=== PATIENT | female | born 1945 | race Caucasian/White ===

== ENCOUNTER 2023-06-04 11:59 | Inpatient (IN) | payer OTHER ==
[~2023-06-04] VITALS: Ht 162.6 cm; Wt 61.0 kg
[~2023-06-04 11:59] MED LIST: FOLI-119 PO; HYDR12.59 PO; HYDR200T36 PO; LEUC5TAB PO; LISI10TA34 PO; METH2.5T PO; METO-159 PO; TRAM50TA2 PO
[2023-06-04 12:50] LABS: Basophils # (auto) 0 10 ^3/uL (0-0.2); Basophils % (auto) 0.8 % (0.0-2.0); Eosinophils # (auto) 0.1 10 ^3/uL (0-0.8); Eosinophils % (auto) 1.1 % (0.0-7.0); Hematocrit 38.3 % (36.0-46.0); Hemoglobin 12.8 g/dL (12.2-16.2); Lymphocytes # (auto) 0.8 10 ^3/uL (0.4-5.4); Lymphocytes % (auto) 16.3 % (10.0-50.0); Mean Corpuscular Hemoglobin 30.6 pg (28.0-32.0); Mean Corpuscular Hgb Conc. 33.3 g/dL (32.0-36.0); Mean Corpuscular Volume 91.6 fL (80.0-100.0); Monocytes # (auto) 0.3 10 ^3/uL (0-1.3); Neutrophils # (auto) 3.6 10 ^3/uL (1.6-8.6); Neutrophils % (auto) 74.8 % (37.0-80.0); Nucleated Red Blood Cells % 0.1 %; Red Blood Cells 4.18 10^6/uL (4.0-5.20); Red Cell Distribution Width 14.1 % (11.8-14.3); White Blood Cell 4.8 10^3/uL (4.4-10.8)
[2023-06-04 13:24] LABS: Alanine Aminotransferase 23 U/L (7-40); Albumin 4.4 g/dL (3.2-4.8); Alkaline Phosphatase 105 U/L (46-116); Anion Gap 9 (5-15); Aspartate Aminotransferase 25 U/L (13-40); BUN/Creatinine Ratio 14.7 (10.0-20.0); Bilirubin, Total 0.8 mg/dL (0.2-1.0); Blood Urea Nitrogen 15 mg/dL (9-23); Calcium 9.7 mg/dL (8.5-10.1); Carbon Dioxide 28 mmol/L (20-30); Chloride 104 mmol/L (98-107); Glucose 122 mg/dL (74-106); Potassium 3.9 mmol/L (3.5-5.1); Sodium 141 mmol/L (136-145); Total Protein 6.6 g/dL (5.7-8.2)
[2023-06-04 13:39] LABS: Urine Bacteria FEW /hpf (None Seen); Urine Blood Negative /uL (Negative); Urine Clarity Clear (Clear); Urine Color Yellow (Yellow); Urine Hyaline Cast FEW /lpf (0 - 2); Urine Mucus FEW (None Seen); Urine Protein, UAD 1+ (Negative); Urine Specific Gravity 1.018 (1.001-1.035); Urine Urobilinogen Normal (Negative); Urine WBC 2 /hpf (0 - 5); Urine pH 5.5 (5.0-8.0)
[2023-06-04] MEDS ORDERED: ASPirin 325 MG TAB PO ONE (15:00)
[2023-06-04] MEDS ORDERED: NITROGLYCERIN 0.4 MG SL TAB SL ONE (15:00)
[2023-06-04] MEDS ORDERED: MORPHINE SULFATE INJ 2 MG/ml SYRG IV PRN (16:15)
[2023-06-04] MEDS ORDERED: ACETAMINOPHEN 325 MG TAB PO PRN (16:15)
[2023-06-04] MEDS ORDERED: NITROGLYCERIN 0.4 MG SL TAB SL PRN (16:15)
[2023-06-04] MEDS ORDERED: ONDANSETRON HCL 4 MG/2 ML VIAL IV PRN (16:15)
[2023-06-04 21:10] VITALS: PULSE 61; RESP 16; O2SAT 93
[2023-06-04] MEDS: HYDROcodone-ACET 5/325MG TAB PO PRN (21:44)
[2023-06-05] MEDS: hydrALAZINE HCL 20 MG/ML VL IV PRN ×2 (01:52→18:22)
[2023-06-05] MEDS: HYDROcodone-ACET 5/325MG TAB PO PRN ×3 (04:01→19:53)
[2023-06-05 07:45] VITALS: PULSE 69; RESP 13; O2SAT 97
[2023-06-05] MEDS: cloNIDine HCL 0.1 MG TAB PO SCH ×2 (10:16→22:07)
[2023-06-05 19:25] VITALS: PULSE 92; RESP 14; O2SAT 96
[2023-06-06] MEDS: hydrALAZINE HCL 20 MG/ML VL IV PRN (02:51)
[2023-06-06] MEDS: HYDROcodone-ACET 5/325MG TAB PO PRN ×2 (04:21→10:37)
[2023-06-06 07:33] VITALS: TEMP 97
[2023-06-06] MEDS: cloNIDine HCL 0.1 MG TAB PO SCH (10:01)
[2023-06-06 13:10] VITALS: BP 144/48; PULSE 60; RESP 16; O2SAT 99
== END 2023-06-06 13:30 | disposition home health service (06) | DRG 313 ==
LOC: ER 11:59 → TELE 16:17 → OBSVTOIN 06-06 01:47 → TELE 06-06 13:30
PROVIDERS: ADMIT Internal Medicine; ATTEND Internal Medicine
DX: R07.9 Chest pain, unspecified (principal); I10 Essential (primary) hypertension; M06.9 Rheumatoid arthritis, unspecified; I25.10 Atherosclerotic heart disease of native coronary artery without angina pectoris; E11.9 Type 2 diabetes mellitus without complications; Z80.41 Family history of malignant neoplasm of ovary; Z86.73 Personal history of transient ischemic attack (TIA), and cerebral infarction without residual deficits; Z90.49 Acquired absence of other specified parts of digestive tract
CPT/HCPCS: 36415; 71046; 80053; 81001; 83880; 84484; 85025; 93005; 93306; G0378